=== PATIENT | female | born 1970 | race Two or more races ===

== ENCOUNTER 2019-07-07 00:46 | Emergency (ER) | payer OTHER ==
[~2019-07-07] VITALS: Ht 165.1 cm; Wt 99.1 kg
[2019-07-07 00:49] VITALS: BP 129/50; Ht 165.1 cm; Wt 99.1 kg
== END 2019-07-07 04:16 | disposition left against medical advice (07) ==
LOC: ED 00:46
DX: Z53.21 Procedure and treatment not carried out due to patient leaving prior to being seen by health care provider (principal)